=== PATIENT | male | born 1950 | race Caucasian/White ===

== ENCOUNTER → 2017-07-24 10:05 | Outpatient (CLI) | payer MEDICARE, BC, SELFPAY ==
--- NOTE | 2017-07-24 | DI.CT.S_ITS ---
PROCEDURE: CT ABDOMEN WO/W CON INDICATIONS: 67-year-old male with superior left renal mass on recent ultrasound. TECHNIQUE: Optional 5 mm thick noncontrast images acquired from the diaphragm to the iliac crests. After the administration of intravenous contrast, 5 mm thick images again acquired from the diaphragm to the iliac crests in the arterial and urographic phases. 5 mm thick coronal and sagittal reformats were then acquired. For radiation dose reduction, the following was used: automated exposure control, adjustment of mA and/or kV according to patient size. COMPARISON: [facility], US, US ABDOMEN COMPLETE, 07/19/2017, 8:36. FINDINGS: Image quality: Excellent. Lung bases: Lung bases are clear. Heart size is normal. Genitourinary: Ultrasound finding corresponds with 7.1 x 6.6 x 5.9 cm bilobed heterogeneously enhancing mass occupying the superior left kidney, extending to involve the left renal pelvis, with less than 50% exophytic morphology. On coronal reformatted images, lesion crosses the superior polar line and abuts the mid axial line. The left renal vein appears normal in caliber and enhancement. No hydronephrosis. Precontrast images demonstrate no kidney stones. Right kidney appears normal. Other solid organs: Liver is normal in size, with geographic fatty infiltration of both the right and left lobes. Gallbladder wall thickness is normal. Biliary system is non dilated. Pancreas enhances normally. Spleen is normal in size and enhancement. No adrenal nodules. Peritoneum and bowel: Unenhanced bowel loops are normal in wall thickness and caliber. No free fluid or air. Nodes and vessels: No retroperitoneal or mesenteric adenopathy by size criteria. Aorta and inferior vena cava are normal in caliber, with patchy aortoiliac atherosclerosis. Bones: No suspicious bony lesions. No vertebral body compression fractures. Miscellaneous: No ventral hernias. IMPRESSION: 1. Ultrasound finding corresponds with a 7.1 cm bilobed partially exophytic superior left renal mass, extending into the left renal pelvis but not the left renal vein. No regional lymphadenopathy by CT size criteria. Finding would be consistent with renal cell carcinoma. 2. Geographic fatty infiltration of the liver. Dictated by: Evert Godoy M.D. on 07/24/2017 at 12:58 Approved by: Evert Godoy M.D. on 07/24/2017 at 13:10
== END ==
PROVIDERS: PCP Internal Medicine; Visit Provider Internal Medicine
DX: N28.9 Disorder of kidney and ureter, unspecified (principal); K76.0 Fatty (change of) liver, not elsewhere classified
CPT/HCPCS: 74170; Q9967

== ENCOUNTER → 2019-01-14 12:08 | Outpatient (CLI) | payer MEDICARE, BC, SELFPAY ==
--- NOTE | 2019-01-14 | DI.US.S_ITS ---
PROCEDURE: US RENAL COMPLETE INDICATIONS: PERSONAL HISTORY OF OTHER MALIGNANT NEOPLASM OF KIDNEY TECHNIQUE: Real-time scanning was performed of the kidneys and bladder, with image documentation. COMPARISON: [facility], CT, CT ABDOMEN WITH CONTRAST, 01/07/2018, 12:30. FINDINGS: Kidneys: The right kidney is normal in size and measures 12.5 cm in length. No cystic or solid renal lesion is evident. There is no shadowing nephrolithiasis. No hydronephrosis is present. Cortical medullary differentiation is within normal limits. The left kidney has been surgically removed. No focal abnormality is identified within the left renal fossa. Bladder: Pre-void bladder volume is 341 mL. Post-void residual is 0 mL. Pre-void images demonstrate no intraluminal masses or stones. On pre-void images, the right ureteral jet is noted with color Doppler interrogation. Miscellaneous: No free pelvic fluid. IMPRESSION: 1. Status post left nephrectomy. 2. The right kidney is within normal limits. No hydronephrosis. Dictated by: Eduardo Contreras M.D. on 01/14/2019 at 15:02 Approved by: Eduardo Contreras M.D. on 01/14/2019 at 15:03
== END ==
PROVIDERS: PCP Internal Medicine; Visit Provider Urology
DX: Z08 Encounter for follow-up examination after completed treatment for malignant neoplasm (principal); Z85.528 Personal history of other malignant neoplasm of kidney; Z90.5 Acquired absence of kidney
CPT/HCPCS: 76770

== ENCOUNTER → 2019-01-15 11:16 | Outpatient (CLI) | payer MEDICARE, BC, SELFPAY ==
--- NOTE | 2019-01-15 | DI.RAD.S_ITS ---
PROCEDURE: XR CHEST 2V INDICATIONS: Personal history of other malignant neoplasm of kidney TECHNIQUE: 2 views of the chest were acquired. COMPARISON: [facility], CR, XR CHEST 2 VIEWS, 04/04/2018, 11:45. [facility], CR, XR CHEST 1 VIEW, 08/29/2017, 14:51. [facility], CR, XR CHEST 1 VIEW, 08/29/2017, 3:43. [facility], CR, XR CHEST 2 VIEWS, 08/27/2017, 16:18. [facility], CR, XR CHEST 1 VIEW, 08/26/2017, 11:53. [facility], CR, XR CHEST 2 VIEWS, 08/09/2017, 12:49. FINDINGS: Surgical changes and devices: A surgical clip projects over the left upper quadrant of the abdomen. Lungs and pleura: No pleural effusion or pneumothorax. There is a 4 mm rounded pulmonary nodule projecting over the lateral right upper lobe/right midlung field, best seen on PA view projecting over the posterior aspect of the right sixth rib, is stable in appearance on multiple prior chest radiographically back to at least 08/09/17. Mediastinum: Mediastinal contours are normal. Heart size is normal. Bones and chest wall: No suspicious bony abnormalities. Soft tissues appear unremarkable. Mild degenerative changes of the bilateral acromioclavicular joints noted. IMPRESSION: 4 mm pulmonary nodule projecting over the lateral right upper lobe/right midlung field is stable in appearance on multiple prior chest radiographs dating back to 08/09/17 and is most consistent with a calcified pulmonary granuloma. Attention on followup imaging recommended to demonstrate continued stability. Dictated by: Jermaine Conn M.D. on 01/15/2019 at 16:50 Approved by: Jermaine Conn M.D. on 01/15/2019 at 16:58
[2019-01-15 12:33] LABS: Blood Urea Nitrogen 22 mg/dL (9-20); Estimated Glomerular Filt Rate > 60.0 mL/min (>60)
[2019-01-15 13:02] LABS: Prostate Specific Antigen 0.075 ng/mL (0.10-4.00)
== END ==
PROVIDERS: PCP Internal Medicine; Visit Provider Urology
DX: Z85.528 Personal history of other malignant neoplasm of kidney (principal); Z12.5 Encounter for screening for malignant neoplasm of prostate; R91.1 Solitary pulmonary nodule
CPT/HCPCS: 36415; 71046; 82565; 84153; 84520

== ENCOUNTER → 2019-10-20 10:39 | Outpatient (CLI) | payer MEDICARE, BC, SELFPAY ==
--- NOTE | 2019-10-20 | DI.CT.S_ITS ---
PROCEDURE: CT ABDOMEN WO/W CON INDICATIONS: Personal history of other malignant neoplasm of kidney TECHNIQUE: Optional 5 mm thick noncontrast images acquired from the diaphragm to the iliac crests. After the administration of intravenous contrast, 5 mm thick images again acquired from the diaphragm to the iliac crests in the arterial and urographic phases. 5 mm thick coronal and sagittal reformats were then acquired. For radiation dose reduction, the following was used: automated exposure control, adjustment of mA and/or kV according to patient size. COMPARISON: [facility], CT, CT ABDOMEN WO/W CON, 07/24/2017, 10:54. FINDINGS: Image quality: Excellent. Lung bases: Lung bases are clear. Heart size is normal. Genitourinary: The patient is status post left nephrectomy. Mild prominence of the right intrarenal collecting system, likely compensatory. The right ureters of normal caliber to the extent is visible. No intrarenal calcifications. Postcontrast, there is with the fat stranding/scarring. No suspicious nodular enhancement. There is posterior displacement of the spleen into the renal fossa. The right kidney demonstrates normal uptake and excretion of contrast. Other solid organs: Liver is minimally hypodense. No enhancing nodules.. Gallbladder appears normal . Biliary system is non dilated. Pancreas enhances normally. Spleen is normal in size and enhancement. No adrenal nodules. Peritoneum and bowel: Unenhanced bowel loops are normal in wall thickness and caliber. No free fluid or air. Nodes and vessels: There is a tiny fat containing hiatal hernia which also contains a small, nonspecific lymph node measuring 6 mm in short axis. No retroperitoneal or mesenteric adenopathy by size criteria. Aorta and inferior vena cava are normal in caliber. Bones: No suspicious bony lesions in the visible osseous structures. No vertebral body compression fractures. Miscellaneous: No ventral hernias. IMPRESSION: 1. Interval left nephrectomy without evidence of residual disease in the left renal fossa. 2. Tiny fat containing hiatal hernia containing in the nonspecific, nonenlarged lymph node, notable for location only. 3. Mild hepatic steatosis. 4. No evidence of metastatic disease within the structures scanned. Dictated by: Kiah Urias M.D. on 10/20/2019 at 13:15 Approved by: Kiah Urias M.D. on 10/20/2019 at 13:22
== END ==
PROVIDERS: PCP Internal Medicine; Referring Provider Urology; Visit Provider Urology
DX: Z08 Encounter for follow-up examination after completed treatment for malignant neoplasm (principal); Z85.528 Personal history of other malignant neoplasm of kidney; K76.0 Fatty (change of) liver, not elsewhere classified; Z90.5 Acquired absence of kidney
CPT/HCPCS: 74170; Q9967

== ENCOUNTER → 2020-07-19 08:10 | Outpatient (CLI) | payer MEDICARE, BC, SELFPAY ==
--- NOTE | 2020-07-19 08:11 | DI.US.S_ITS ---
PROCEDURE: US ABDOMEN LIMITED INDICATIONS: RUQ PAIN TECHNIQUE: Real-time focused scanning was performed of the abdomen, with image documentation. COMPARISON: [facility], CT, CT ABDOMEN WO/W CON, 10/20/2019, 11:26. FINDINGS: The liver demonstrates normal size. The liver demonstrates generalized moderately increased echogenicity. This decreases ultrasound sensitivity for detection of hepatic masses. The main portal vein demonstrates normal size and demonstrates normal appearing, hepatopetal flow. No findings of gallstones or sludge are seen. The gallbladder wall is not thickened, measuring 3 mm or less. No specific pericholecystic fluid is seen. The sonographic Barber sign is negative. There is no biliary dilatation, the common bile duct measures 4 mm. No significant pancreatic abnormality is seen on these images. IMPRESSION: The gallbladder demonstrates a normal sonographic appearance. No biliary dilatation is seen. The liver demonstrates increased echogenicity. This finding is nonspecific, yet it is most commonly attributed to fatty infiltration. Dictated by: Johan Martinez M.D. on 07/19/2020 at 9:39 Approved by: Johan Martinez M.D. on 07/19/2020 at 9:40
== END ==
PROVIDERS: PCP Internal Medicine; Referring Provider Physician Assistant Medical; Visit Provider Physician Assistant Medical
DX: R10.11 Right upper quadrant pain (principal)
CPT/HCPCS: 76705

== ENCOUNTER → 2020-08-23 09:40 | Outpatient (CLI) | payer MEDICARE, BC, SELFPAY ==
[2020-08-23 13:46] LABS: COVID19 -Nasal RAPID Negative (Negative)
== END ==
PROVIDERS: PCP Internal Medicine; Visit Provider Physician Assistant
DX: Z01.812 Encounter for preprocedural laboratory examination (principal); Z20.822 Contact with and (suspected) exposure to COVID-19
CPT/HCPCS: 87635; C9803

== ENCOUNTER 2020-08-25 11:19 | Day surgery (SDC) | payer MEDICARE, BC, SELFPAY ==
[2020-08-25] VITALS (8 sets, daily range): BP systolic 94–175; BP diastolic 50–90; PULSE 62–79; RESP 12–17; TEMP 36.1–36.6; O2SAT 93–100; BMI 27.2
--- NOTE | 2020-08-25 | PATH_ITS ---
[facility] Accession Number: [id number] . 01 Material submitted: . gastrointestinal site - GASTRIC BIOPSIES . 01 Clinical history: . A: GASTRIC BIOPSIES TO RULE OUT H PYLORI . 02 Diagnosis: Stomach, Biopsies: Gastric antral and body mucosa with mild chronic inflammation. Negative for Helicobacter organisms by immunohistochemistry. Negative for intestinal metaplasia. Negative for dysplasia or malignancy. [facility] 09/01/2020 1519 Local . 02 Electronically signed: . Jhonathan Linder MD, PhD, Pathologist NPI- [id number] . 01 Gross description: . GASTRIC BIOPSIES: Received in formalin are 2 fragment(s) of meng, soft tissue measuring 0.4 x 0.3 x 0.2 cm to 0.2 x 0.1 x 0.1 cm submitted entirely in 1 cassette(s) /[facility] 08/26/2020 0915 Local . 02 Microscopic: . An immunohistochemical stain was performed to evaluate for Helicobacter organisms and is negative. The control stain showed appropriate reactivity. . * This test was developed and its performance characteristics determined by [facility]. It has not been cleared or approved by the U.S. Food and Drug Administration. The FDA has determined that such clearance or approval is not necessary. This test is used for clinical purposes. It should not be regarded as investigational or for research. . 02 Pathologist provided ICD-10: K29.70 . 02 CPT . 617856, C34324 Performed at: 01 [facility] [address] [place] [address], [place], [place] [id number] MD Chan Ahn MD Phone: [phone] Performed at: 02 [facility] [id number] [address] [place] [id number] MD Teagan Avelar MD Phone: [phone]
[2020-08-25] MEDS: SODIUM CHLORIDE 0.9% 1,000 ML 100 ML IV (11:51)
--- NOTE | 2020-08-25 12:56 | PM.HP.1 ---
History of Present Illness History of Present Illness Date Patient Seen: 08/25/20 Chief complaint: SDC Narrative: GERD, right upper quadrant pain, and need for colorectal cancer screening Patient History Medical History (Updated 08/24/20 @ 15:07 by Nirmala Jessica RN) GERD (gastroesophageal reflux disease) History of kidney cancer Prostate cancer Status post nephrectomy Family & Social History Social History: household members spouse Tobacco & Substance use: Smoking Status Former smoker alcohol intake current alcohol intake frequency 0-2 drinks per day Substance Use Type does not use Meds Home Medications and Allergies Home Medications Medication Instructions Recorded Confirmed Type amlodipine 5 mg PO DAILY 08/24/20 08/25/20 History carvedilol 12.5 mg PO DAILY 08/24/20 08/25/20 History losartan 100 mg PO DAILY 08/24/20 08/25/20 History simvastatin 10 mg PO DAILY 08/24/20 08/25/20 History omeprazole 40 mg PO DAILY 08/25/20 08/25/20 History Allergies Allergy/AdvReac Type Severity Reaction Status Date / Time No Known Drug Allergies Allergy Verified 08/25/20 11:30 Exam Vital Signs (past 8 hours): - 08/25/20 11:41 Temperature 97.5 F L Pulse Rate 79 Respiratory Rate 16 Blood Pressure 175/90 H Pulse Oximetry 100 Oxygen Delivery Method Room Air Narrative Exam Narrative: Oropharynx free of lesions Chest clear to auscultation percussion Cardiac exam reveals no S3 or murmur Assessment & Plan Assessment & Plan narrative: GERD under reasonably good control. Rule out Flores's esophagus. Also need for colorectal cancer screening. Risks, benefits, alternatives have been explained.
--- NOTE | 2020-08-25 12:57 | PM.OP.ENDO ---
Operative Date/Time/Diagnoses Date of procedure: 08/25/20 Pre-op diagnosis: See indication and findings Procedure & Clinicians Study performed: EGD and colonoscopy Same procedure as scheduled: Yes Indications: GERD and need for colorectal cancer screening Surgeon: Veronica Cordero Procedure Notes Procedure in detail: After informed consent was obtained the patient was placed in left lateral decubitus position. The video upper scope was placed into the oropharynx and with the patient's help swelled into the esophagus. The esophagus, stomach, and duodenum were carefully examined. On withdrawal retroflexed view the GE junction was performed. The scope was removed. The patient tolerated procedure well. The patient was then turned to the colonoscope substituted. This was introduced in the rectum slowly cecum. Preparation was good. On slow withdrawal mucosa was carefully examined. The scope was removed. The patient tolerated the procedure well. Blood loss none Complications none Sedation Total sedation time 26 minutes Fentanyl 150 mg Versed 11 mg IV titration Findings EGD 1. Normal esophagus 2. Reasonably wide-open Schatzki's ring at the GE junction, not treated due to no history of dysphagia 3. Patchy antral erythema biopsied to rule out Helicobacter 4. Normal duodenal bulb and sweep Colonoscopy 1. Minimal pancolonic diverticulosis with multiple small diverticula. 2. Otherwise negative colonoscopy to cecum Will follow up on his biopsy results. Should he develop dysphagia he will need a dilation. He will need follow-up colonoscopy in 5-10 years.
[2020-08-25] MEDS: MIDAZOLAM 5 MG/5 ML VIAL IV (13:25)
[2020-08-25] MEDS: fentaNYL 250 MCG/5 ML INJ IV (13:25)
--- NOTE | 2020-08-25 14:11 | SUR.PHASEII ---
Pt transferred to PACU phase II. SBAR report to Martha MABRY. Pt state SBP normally 140. Denies any dizziness or lightheadedness. Tolerated second lewis shailesh.
--- NOTE | 2020-08-25 14:19 | SUR.PHASEII ---
Pt ready to go, belly soft, not dizzy, light-headed. Dressed, ride here. left when ready, left in stable condition.
--- NOTE | 2020-08-25 14:34 | SUR.PHASEII ---
Pt left when ready and left in stable condition
--- NOTE | 2020-08-25 14:35 | SUR.PHASEII ---
d/c instruction to pt done by Reshma d/c instruction to by this RN.
== END 2020-08-25 14:25 | disposition home or self-care (01) ==
PROVIDERS: PCP Internal Medicine; Referring Provider Internal Medicine Gastroenterology; Visit Provider Internal Medicine Gastroenterology
PROC: 0DJ08ZZ Inspection of Upper Intestinal Tract, Via Natural or Artificial Opening Endoscopic (ICD-10-PCS; CPT 43235; principal; 2020-08-25 12:30)
PROC: 0DJD8ZZ Inspection of Lower Intestinal Tract, Via Natural or Artificial Opening Endoscopic (ICD-10-PCS; CPT 45378; 2020-08-25 12:30)
DX: Z12.11 Encounter for screening for malignant neoplasm of colon (principal); K21.9 Gastro-esophageal reflux disease without esophagitis; K22.2 Esophageal obstruction; K57.30 Diverticulosis of large intestine without perforation or abscess without bleeding; K29.50 Unspecified chronic gastritis without bleeding
CPT/HCPCS: 43239; G0121; J2250; J3010

== ENCOUNTER → 2021-01-20 11:56 | Outpatient (CLI) | payer MEDICARE, BC, SELFPAY ==
--- NOTE | 2021-01-20 | DI.US.S_ITS ---
PROCEDURE: US RENAL COMPLETE INDICATIONS: HISTORY LEFT RENAL CELL CARCINOMA TECHNIQUE: Real-time scanning was performed of the kidneys and bladder, with image documentation. COMPARISON: [facility], , US RENAL COMPLETE, 01/14/2019, 12:16. Reference is made to the CT abdomen dated October 20, 2019 FINDINGS: Kidneys: Right kidney measures 13.2 cm long. Right renal cortical thickness is 1.7 cm. Renal cortical echotexture is normal. No hydronephrosis or nephrolithiasis. No suspicious solid mass lesions. The left kidney is surgically absent. Bladder: Pre-void bladder volume is 383 mL. Post-void residual is 0 mL. Pre-void images demonstrate no intraluminal masses or stones. On pre-void images, no ureteral jets are noted with color Doppler interrogation. (Of note, ureteral jets may not be detectable in up to 25% of cases due to insufficient differences in specific gravity between ureteral and bladder urine). Miscellaneous: No free pelvic fluid. IMPRESSION: No significant abnormality. Dictated by: Stephan Motta M.D. on 01/20/2021 at 13:32 Approved by: Stephan Motta M.D. on 01/20/2021 at 13:37
--- NOTE | 2021-01-20 | DI.RAD.S_ITS ---
PROCEDURE: XR CHEST 2V INDICATIONS: Hx Kidney Cancer TECHNIQUE: 2 views of the chest were acquired. COMPARISON: [facility], CR, XR CHEST 2V, 01/15/2019, 11:16. FINDINGS: Surgical changes and devices: None. Lungs and pleura: Left basilar linear density. Calcified granuloma in the right upper lung zone. No consolidation, pleural effusions or pneumothorax. Mediastinum: Mediastinal contours are normal. Heart size is normal. Bones and chest wall: No suspicious bony abnormalities. Soft tissues appear unremarkable. IMPRESSION: Left basilar plate atelectasis/scarring. Dictated by: Stephan Motta M.D. on 01/20/2021 at 12:53 Approved by: Stephan Motta M.D. on 01/20/2021 at 12:55
== END ==
PROVIDERS: PCP Internal Medicine; Referring Provider Urology; Visit Provider Urology
DX: Z08 Encounter for follow-up examination after completed treatment for malignant neoplasm (principal); Z85.528 Personal history of other malignant neoplasm of kidney; Z90.5 Acquired absence of kidney
CPT/HCPCS: 71046; 76770

== ENCOUNTER → 2023-06-28 09:23 | Outpatient (CLI) | payer MEDICARE, BC, SELFPAY ==
--- NOTE | 2023-06-28 | DI.RAD.S_ITS ---
PROCEDURE: XR CHEST 2V INDICATIONS: HX OF KIDNEY CANCER/follow up TECHNIQUE: 2 views of the chest were acquired. COMPARISON: [facility], CT, CT ABDOMEN PELVIS W CON, 06/28/2023, 10:24. [facility], CR, XR CHEST 2V, 01/20/2021, 11:54. FINDINGS: Surgical changes and devices: None. Lungs and pleura: Lungs are clear. No pleural effusions or pneumothorax. Mediastinum: Mediastinal contours are normal. Heart size is normal. Bones and chest wall: No suspicious bony abnormalities. Soft tissues appear unremarkable. IMPRESSION: No acute cardiopulmonary abnormality is seen. No obvious mass. Dictated by: Brda Draper M.D. on 06/28/2023 at 11:29 Approved by: Brad Draper M.D. on 06/28/2023 at 11:33
--- NOTE | 2023-06-28 09:27 | DI.CT.S_ITS ---
PROCEDURE: CT ABDOMEN PELVIS W CON INDICATIONS: Personal history of other malignant neoplasm of kidney TECHNIQUE: After the administration of intravenous contrast, axial sections acquired from the lung bases to the pubic symphysis. Coronal and sagittal reformats were performed. For radiation dose reduction, the following was used: automated exposure control, adjustment of mA and/or kV according to patient size. COMPARISON: [facility], CT, CT ABDOMEN WO/W CON, 07/24/2017, 10:54. [facility], CT, CT ABDOMEN PELVIS WITH CONTRAST, 08/28/2017, 15:08. [facility], CT, CT ABDOMEN WO/W CON, 10/20/2019, 11:26. FINDINGS: Image quality: Diagnostic. Lower Chest: No significant findings. ABDOMEN: Liver: No solid mass. Hepatic steatosis. Gallbladder: No radiopaque gallstones or wall thickening. Biliary ducts: No biliary dilation. Pancreas: No ductal dilation. Spleen: Size is within normal limits. Adrenal Glands: No adrenal nodules. Kidneys and Ureters: Left nephrectomy. No mass in the nephrectomy bed. No right hydronephrosis. No significant right ovarian cyst or mass. Stomach and Bowel: Normal colonic caliber, without significant wall thickening. Diverticulosis. Normal appendix. Peritoneum: No abnormal intraperitoneal fluid. No free air. Ventral Wall: Tiny umbilical hernia. Abdominal Nodes: No retroperitoneal or mesenteric adenopathy by size criteria. Vessels: Aorta and inferior vena cava are normal in size. Small perigastric varices. PELVIS: Pelvic Organs: Prostate gland appears atrophic. Bladder: No bladder wall thickening, accounting for underdistention. Pelvic Nodes: No enlarged lymph nodes. Miscellaneous: No inguinal hernias are seen. Bones: No aggressive osseous abnormality. Sclerotic focus at the left femoral head unchanged since 2018. IMPRESSION: 1. Left nephrectomy. No mass in the nephrectomy bed. 2. No adenopathy. No suspicious osseous lesion. Dictated by: Brad Draper M.D. on 06/28/2023 at 10:43 Approved by: Brad Draper M.D. on 06/28/2023 at 10:59
[2023-06-28 09:52] LABS: Estimated Glomerular Filt Rate > 60 mL/min (>60)
== END ==
LOC: CT 09:25
PROVIDERS: Radiology Diagnostic Radiology; PCP Internal Medicine; Referring Provider Urology; Visit Provider Urology
DX: Z85.528 Personal history of other malignant neoplasm of kidney; K76.0 Fatty (change of) liver, not elsewhere classified; Z90.5 Acquired absence of kidney; Z08 Encounter for follow-up examination after completed treatment for malignant neoplasm
CPT/HCPCS: 36415; 71046; 74177; 82565; Q9967